=== PATIENT | female | born 1965 | race Caucasian/White ===

== ENCOUNTER → 2020-08-22 14:39 | Outpatient (CLI) | payer BC, SELFPAY ==
--- NOTE | ~2020-08-22 | MM_ITS ---
EXAMINATION: MM screening omi BI w melchor HISTORY: Screening mammogram TECHNIQUE: Craniocaudal and mediolateral oblique 3-D tomosynthesis images were obtained and synthetic 2-D images were generated. CAD analysis was submitted and interpreted. COMPARISON: 04/05/2014, 03/17/2013 bilateral digital mammogram examinations BREAST PARENCHYMAL COMPOSITION: There are scattered areas of fibroglandular density. FINDINGS: Mildly diminished asymmetry of the fibroglandular stroma since 04/05/2014. There is no evide nce of suspicious mass, calcification, or architectural distortion to suggest malignancy in either br east. There has been no suspicious interval change. IMPRESSION: 1. No mammographic evidence of malignancy. 2. Recommend routine screening mammography in one year. BI-RADS Category 2: Benign finding(s). Reviewed, dictated and finalized at location A. 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
--- NOTE | ~2020-08-22 | DEXA_ITS ---
Bone Density Report Name: Tanya Trinidad Age: 54 Sex: Female Ethnicity: White Date of : 1965 Indication: postmenopausal; screening for osteoporosis; parental hip fracture; height loss; inflammatory bowel disease; Referring Provider: Charlie, Eli Study: Bone densitometry was performed. Exam Date: August 22, 2020 Accession number: [id number] Bone Density: Region BMD T-score Z-score Classification AP Spine (L1-L4) 1.183 1.2 2.2 Normal Femoral Neck (Left) 0.704 -1.3 -0.3 Osteopenia Total Hip (Left) 0.873 -0.6 0.1 Normal Femoral Neck (Right) 0.717 -1.2 -0.2 Osteopenia Total Hip (Right) 0.881 -0.5 0.1 Normal Total Hip Mean 0.877 -0.6 0.1 Normal World Health Organization criteria for BMD impression classify patients as: Normal (T-score at or above -1.0), Osteopenia (T-score between -1.0 and -2.5), or Osteoporosis (T-score at or below -2.5). 10-year Fracture Risk: FRAX not reported because: Treated for osteoporosis Clinical Information Provided by Patient: Parent has had a hip fracture Is being treated for osteoporosis Has used the following medications: HRT (i.e. estrogen/hormone therapy), Vitamin D Has the following medical conditions: Inflammatory bowel diseases Patient maximum height was 66.5 Menopause Age: 53 Does not regularly consume dairy products Drinks caffeinated beverages Onset of menses at age 15 Number of children 0 Impression: The patient has low bone mass, based on the Left Femoral Neck T-score. The patient has risk factors, including: parental hip fracture. Discussion: It is important to ask patients whether they are taking their medications and to encourage continued and appropriate compliance with their osteoporosis therapies to reduce fracture risk. It is also important to review their risk factors and encourage appropriate calcium and vitamin D intakes, exercise, fall prevention and other lifestyle measures. Follow-Up: Consider a repeat BMD and Vertebral Fracture Assessment (VFA) exam in 2 years or sooner if medically necessary, to reassess this patient's status. Reported by: JUANITO on 08/22/2020 3:38:00 PM. Reviewed, dictated and finalized at location ALisa VELASQUEZ
== END ==
PROVIDERS: PCP Family Medicine; Visit Provider Nurse Practitioner
DX: Z12.31 Encounter for screening mammogram for malignant neoplasm of breast (principal); Z78.0 Asymptomatic menopausal state; M85.89 Other specified disorders of bone density and structure, multiple sites
CPT/HCPCS: 77063; 77067; 77080

== ENCOUNTER → 2020-10-22 00:18 | Outpatient (CLI) | payer BC, SELFPAY ==
[2020-10-22 18:31] LABS: SARS-CoV-2 RNA PCR Negative
== END ==
PROVIDERS: PCP Family Medicine; Visit Provider Otolaryngology
DX: Z01.812 Encounter for preprocedural laboratory examination (principal); Z20.822 Contact with and (suspected) exposure to COVID-19
CPT/HCPCS: C9803; U0003; U0005

== ENCOUNTER 2020-10-25 04:32 | Day surgery (SDC) | payer BC, SELFPAY ==
[2020-10-14 14:01] VITALS: BMI 24.9
--- NOTE | 2020-10-24 13:13 | PM.IMHP ---
H&P: HPI History of Present Illness Date/Time: 10/24/20 13:13 patient presents for septoplasty and turbinate reduction. Reports no new symptoms or changes in medical history. Chief Complaint: Nasal obstruction, septal deviation, inferior turbinate hypertrophy Review of Systems Constitutional: Constitutional: Denies fatigue, Denies fever(s) and Denies lethargy Eyes: Eyes: Denies blurry vision and Denies change in vision ENT: Reports as per HPI Cardiovascular: Cardiovascular: Denies chest pain Respiratory: Respiratory: Denies cough Endocrine: Endocrine: Denies fatigue Hematologic/Lymphatic: Hematologic/Lymphatic: Denies easy bleeding, Denies easy bruising and Denies lymphadenopathy Allergic/Immunologic: Allergic/Immunologic: Denies seasonal rhinorrhea [facility] Family History Family History Sibling Hypertension Family history of diabetes mellitus in first degree relative Grandparent Cerebrovascular accident Diabetes mellitus Father Family history of malignant neoplasm of stomach Family history of lung cancer Family history of malignant neoplasm of esophagus Social History Social History (Updated 09/17/20 @ 16:12 by Kymberly Mejia [facility]) Smoking status: Never smoker Alcohol intake: current Substance use: current Substance use type: marijuana Other substance usage details: daily Gender identity (if verbalized by the patient): Female Spiritual care concerns: No Meds Home Medications and Allergies Home Medications Medication Instructions Recorded Confirmed Type zolpidem 5 mg tablet 5 mg PO ONCE 09/17/20 10/14/20 History escitalopram oxalate 20 mg tablet 20 mg PO DAILY #90 tablet 09/19/20 10/14/20 Rx azelastine 137 mcg (0.1 %) nasal See Rx Instructions .ROUTE 10/09/20 10/14/20 Rx spray aerosol .COMPLEX #30 spray estradiol 0.5 mg PO DAILY 10/14/20 10/14/20 History Allergies Allergy/AdvReac Type Severity Reaction Status Date / Time hydrocodone Allergy Severe Nausea and Verified 10/14/20 14:02 Vomiting oxycodone Allergy Severe Nausea and Verified 10/14/20 14:02 Vomiting propoxyphene Allergy Severe NV Verified 10/14/20 14:02 Exam Const: General: cooperative, healthy appearing, comfortable, well developed and alert HENMT: Head: normal to inspection, normocephalic and atraumatic Ears: hearing grossly normal bilaterally, external ears normal, TM's normal bilaterally and EAC's normal General nose exam: Normal external nose present, Normal nares present, No nasal polyps present and Other nasal findings present ( septal deviation inferior turbinate hypertrophy) Face and sinus: normal facial exam Mouth: Yes Normal oral and palatal mucosa present, Yes lip normal, Yes tongue normal, Yes oropharynx normal and Yes moist mucous membranes Teeth and gingiva: dentition normal and gingiva normal Throat: posterior oropharynx normal, tonsils normal and uvula midline Eyes: General: appearance normal, both eyes and all related structures Periorbital: periorbital findings normal Eyelids: eyelids normal Conjunctivae: conjunctivae normal Sclera: sclerae normal Neck: Neck: normal visual inspection, full ROM and no lymphadenopathy Thyroid: thyroid normal Lymphatic: no lymphadenopathy noted Resp: Effort & Inspection: normal respiratory effort and able to speak in complete sentences Cardio: Jugular venous distension: no JVD Neuro: Cranial nerves: Yes CN's II-XII intact bilaterally Assessment and Plan Assessment and plan (1) Hypertrophy of both inferior nasal turbinates: Code(s): J34.3 - Hypertrophy of nasal turbinates Status: Acute Assessment and Plan: plan is for the operating room for endoscopic assisted septoplasty as well as inferior turbinate reduction. 1.5 hours. The risks and benefits were discussed in great detail including bleeding infection damage to surrounding structures [facility]
[2020-10-25] VITALS (10 sets, daily range): BP systolic 131–175; BP diastolic 70–98; PULSE 64–110; RESP 12–16; TEMP 36.1–36.9; O2SAT 93–99
--- NOTE | 2020-10-25 07:11 | WPDHPUPDATE1 ---
History and Physical Update Update Date/Time: 10/25/20 07:11 History and Physical has been reviewed, including an updated exam of the patient. There are NO changes in the patient's condition. Risks, benefits, and alternatives have been discussed and questions answered. Patient agrees to proceed with procedure.
[2020-10-25] MEDS: ACETAMINOPHEN 500 MG TABLET 1000 MG PO (12:08)
--- NOTE | 2020-10-25 12:08 | WPDANESEPPF ---
Anes - Initial Pre Proc Eval Procedure: Operation Date: 10/25/20 13:30 Proposed Procedures p Septoplasty, - Oswaldo Mae MD s Bilateral Inferior Turbinectomy - Oswaldo Mae MD Date/Time: 10/25/20 12:08 Surgeon: Oswaldo Mae MD Pre Op Diagnosis: nasal deviation, turbinate hypertrophy Patient Data Age: 55 Gender: F Height: 5 ft 6 in Weight: 69.2 kg Allergies Allergy/AdvReac Type Severity Reaction Status Date / Time hydrocodone Allergy Severe Nausea and Verified 10/25/20 11:42 Vomiting oxycodone Allergy Severe Nausea and Verified 10/25/20 11:42 Vomiting propoxyphene Allergy Severe NV Verified 10/25/20 11:42 Home Medications Medication Instructions Recorded Confirmed Type zolpidem 5 mg tablet 5 mg PO HS 09/17/20 10/25/20 History azelastine 137 mcg (0.1 %) nasal See Rx Instructions .ROUTE 10/09/20 10/25/20 Rx spray aerosol .COMPLEX #30 spray estradiol 0.5 mg PO HS 10/14/20 10/25/20 History escitalopram oxalate [Lexapro] 20 mg PO HS 10/25/20 10/25/20 History Patient hx anesthesia problems: post op nausea/vomiting Family hx anesthesia problems: none PMFSH Past Medical History Medical History Anxiety Family History Family History Sibling Hypertension Family history of diabetes mellitus in first degree relative Grandparent Cerebrovascular accident Diabetes mellitus Father Family history of malignant neoplasm of stomach Family history of lung cancer Family history of malignant neoplasm of esophagus Social History Social History Smoking status: Never smoker Alcohol intake: current Substance use: current Substance use type: marijuana Other substance usage details: daily Living arrangements: with family Gender identity (if verbalized by the patient): Female Spiritual care concerns: No Anes - Eval Final PreProcedure Day of Procedure 10/25/20 12:08 Patient weight: normal Heart: regular rate and rhythm Lungs: clear to auscultation Airway: Mallampati scale class II Neurological: alert and oriented Last oral intake: >/= 8 hours ASA classification: II Emergent: no Anesthetic plan: proceed Anesthesia type and monitoring: general ETT and standard monitoring Informed Consent: The patient's anesthetic plan and its attendant risks and benefits were discussed with the patient/family/POA. Questions were solicited and answers provided to the satisfaction of the patient/family/POA.
[2020-10-25] MEDS: LACTATED RINGERS 1,000 ML 30 ML IV CONT (12:09)
[2020-10-25] MEDS: ceFAZolin 2 GM/D5W 50 ML 2 GM/50 ML BAG IVPB (12:45)
[2020-10-25] MEDS: OXYMETAZOLINE HCL 0.05% NAS 15 ML BTL (*BKC) 1 SPRAY NASAL (12:52)
[2020-10-25] MEDS: LIDO 1%/EPINEPHRINE 1:100,000 50 ML VIAL INFILTRATE (12:53)
[2020-10-25] MEDS: SCOPOLAMINE 1.5 MG PATCH TRANSDERM (13:00)
--- NOTE | 2020-10-25 14:41 | PM.PROC ---
Procedure Note - Detailed Date of procedure: 10/25/20 Pre-op diagnosis: nasal deviation, turbinate hypertrophy Post-op diagnosis: same Procedure performed: Septoplasty Inferior turbinate submucosal resection and outfracture Description of procedure: The patient was correctly identified and consent was verified in the preoperative holding. The patient was then brought operating time-out was performed. General anesthesia was induced and endotracheal tube was secured the patient's airway and taped to the left lower lip. The patient was then prepped draped for the aforementioned procedure. Afrin-soaked pledgets were placed for 5 minutes the bilateral nasal passages and then removed. Under endoscopic guidance the bilateral nasal passages were examined and a significant left posterior septal deflection was noted as well as significant inferior turbinate hypertrophy. There was also left inferior caudal septal deflection/obstruction. A cc of 1% lidocaine with 1 100,000 parts epinephrine was injected into the bilateral submucoperichondrial planes of the nasal septum. A Nicolás type incision was then made on the left anterior nasal septum. This was the left nasal septal mucoperichondrial and mucoperiosteal flap was dissected using combination of caudal and 7 Marshallese suction. The anterior nasal septum was then transected and a right-sided nasal septal flap was elevated. Small perforations were noted bilaterally and they were not opposing. He had a deviated nasal septum was removed with scissors Briana forceps as well as Isaac Christopher forceps. Hemostasis was excellent. The septum was closed anterior using 2 interrupted 5 0 fast sutures. The anterior left as well as right inferior turbinates were entered using the micro debrider with a turbinate blade there debrided in the submucoperichondrial plane. The bilateral posterior inferior turbinates were so hypertrophy that they were debrided and suction Bovie at a setting of 10. Hemostasis was again adequate. Velázquez splints were placed bilaterally and sutured anteriorly using a 3 0 mattressed nylon suture. Again hemostasis was adequate. I performed all dictated portions of the procedure. Care the patient was turned over to Anesthesiology. Anesthesia: GETA Surgeon: Oswaldo Mae MD Estimated blood loss (mL): 20 Drains: No Packing: No Pathology: none sent Complications: No immediate complications Condition: stable Disposition: PACU
[2020-10-25] MEDS: ONDANSETRON INJ 4 MG/2 ML VIAL IV PUSH ×2 (15:00→16:26)
== END 2020-10-25 17:00 | disposition home or self-care (01) ==
PROVIDERS: PCP Family Medicine; Visit Provider Otolaryngology
PROC: (CPT 30520; principal; 2020-10-25 13:30)
PROC: (CPT 30520; 2020-10-25 13:30)
DX: J34.2 Deviated nasal septum (principal); J34.3 Hypertrophy of nasal turbinates; J34.89 Other specified disorders of nose and nasal sinuses; F41.9 Anxiety disorder, unspecified
CPT/HCPCS: 30520; 30140; A9270; C9803; J0330; J0690; J1100; J2250; J2405; J2704; J3010; J7120; U0003; U0005

== ENCOUNTER → 2022-10-28 13:47 | Outpatient (CLI) | payer BC, SELFPAY ==
--- NOTE | ~2022-10-28 | MM_ITS ---
EXAMINATION: MM screening omi BI w melchor HISTORY: Screening mammogram TECHNIQUE: Craniocaudal and mediolateral oblique 3-D tomosynthesis images were obtained and synthetic 2-D images were generated. CAD analysis was submitted and interpreted. COMPARISON: 08/22/2020, 04/05/2014 bilateral screening mammogram examinations BREAST PARENCHYMAL COMPOSITION: There are scattered areas of fibroglandular density. FINDINGS: Stable mild fibroglandular asymmetry. There is no evidence of suspicious mass, calcificatio n, or architectural distortion to suggest malignancy in either breast. There has been no suspicious i nterval change. IMPRESSION: 1. No mammographic evidence of malignancy. 2. Recommend routine screening mammography in one year. BI-RADS Category 1: Negative Reviewed, dictated and finalized at location A.
== END ==
PROVIDERS: PCP Obstetrics & Gynecology Gynecology; Visit Provider Obstetrics & Gynecology Gynecology
DX: Z12.31 Encounter for screening mammogram for malignant neoplasm of breast (principal)
CPT/HCPCS: 77063; 77067

== ENCOUNTER 2023-12-14 17:49 | Emergency (ER) | payer BC, SELFPAY ==
[2023-12-14 18:01] VITALS: BP 122/92; PULSE 69; RESP 16; TEMP 36.9; O2SAT 99
--- NOTE | 2023-12-14 18:18 | ED.WOUNDLAC ---
HPI - Wound/Laceration General Chief Complaint: Wound/Laceration Stated Complaint: left finger cut Time Seen by Provider: 12/14/23 18:18 Source: patient, RN notes reviewed and old records reviewed Mode of arrival: ambulatory Limitations: no limitations History of Present Illness HPI narrative: 58-year-old female presents to the [facility] with a laceration and partial avulsion of up finger tip caused by a beef pluck trimmer approximately 45 minutes prior to arrival last tDap 12/16/21 Related Data Home Medications Medication Instructions Recorded Confirmed estradiol 0.5 mg tablet 0.5 mg PO HS 10/14/20 12/14/23 Allergies Allergy/AdvReac Type Severity Reaction Status Date / Time hydrocodone Allergy Severe Nausea and Verified 12/14/23 17:54 Vomiting oxycodone Allergy Severe Nausea and Verified 12/14/23 17:54 Vomiting propoxyphene Allergy Severe NV Verified 12/14/23 17:54 Review of Systems Review of Systems: All systems reviewed & are unremarkable except as noted in HPI and below Constitutional: Constitutional: Reports no additional constitutional complaints Eyes: Eyes: Reports no additional eye complaints ENT: Reports system reviewed and no additional complaints, except as documented Cardiovascular: Cardiovascular: Reports no additional cardiovascular complaints, Denies chest pain and Denies dyspnea Respiratory: Respiratory: Reports no additional respiratory complaints, Denies chest congestion, Denies cough and Denies dyspnea Gastrointestinal: Gastrointestinal: Reports no additional gastrointestinal complaints, Denies abdominal pain, Denies nausea and Denies vomiting Musculoskeletal: Musculoskeletal: Reports no additional musculoskeletal complaints Integumentary/Breasts: Skin/Breast: Reports as per HPI Neurologic: Reports system reviewed and no additional complaints, except as documented Psychiatric: Psychiatric: Reports no additional psychiatric complaints Allergic/Immunologic: Allergic/Immunologic: Reports no additional allergic/immunologic complaints [facility] Past Medical History Medical History Anxiety BMI 25.0-25.9,adult Encounter for wellness examination LEVY (obstructive sleep apnea) Ruptured or perforated eardrum Sudden onset of severe headache Family History Family History Sibling Hypertension Family history of diabetes mellitus in first degree relative Grandparent Cerebrovascular accident Diabetes mellitus Father Family history of malignant neoplasm of stomach Family history of lung cancer Family history of malignant neoplasm of esophagus Social History Social History Smoking status: Never smoker Alcohol intake: current Substance use: current Substance use type: marijuana Other substance usage details: daily Do You Feel Safe in your Home?: Yes Lack of Transportation: No Lack of Food: Never True Current Housing: I Have Housing Concerned About Future Housing: No Difficulty Paying Gas/Electric Bills: YES Difficulty Paying for Meds: No Currently Unemployed: No Education: Master's Degree or Higher Difficulty w/ Childcare or Family Care: No Living arrangements: with family Gender identity (if verbalized by the patient): Female Spiritual care concerns: No Comments At the time of my signature, I reviewed and agree with the nursing past medical, surgical, social, and family history. There is no relevant family history pertinent to the patient complaint. Exam Const: General: cooperative, healthy appearing, comfortable, no acute distress, well developed, alert and well nourished Nutritional Appearance: well nourished Orientation/consciousness: patient oriented x3 Limitations: no limitations HENMT: Head: normal to inspection Ears: hearing grossly normal bilaterally and external ears norm
== END 2023-12-14 18:50 | disposition home or self-care (01) ==
PROVIDERS: Emergency Provider Nurse Practitioner; PCP Family Medicine
DX: S61.213A Laceration without foreign body of left middle finger without damage to nail, initial encounter (principal); S61.215A Laceration without foreign body of left ring finger without damage to nail, initial encounter; W29.3XXA Contact with powered garden and outdoor hand tools and machinery, initial encounter; F12.90 Cannabis use, unspecified, uncomplicated
CPT/HCPCS: 12001; 99212; G0463